=== PATIENT | female | born 1975 ===

== ENCOUNTER 2017-02-24 13:31 | Outpatient (CLI) | payer OTHER ==
--- NOTE | 2017-02-24 16:16 | Ultrasound Report ---
TRANSABDOMINAL AND TRANSVAGINAL PELVIC ULTRASOUND: 02/24/17 13:31:00 CLINICAL: Left lower quadrant pain. FINDINGS: Transabdominal and transvaginal pelvic ultrasound demonstrated a normal small uterus measuring 8.7 x 3.9 x 5.4 centimeters. Normal uterine contour and echogenicity. The endometrium is normal and measures 3 mm AP thickness. Several nabothian cysts of the cervix. Normal right ovary with small follicles. The right ovary measures 3.4 x 1.9 x 2.7cm. normal left ovary with several follicles. A dominant follicle in the left ovary measures 1.4cm. The left ovary measures 4.4 x 1.8 x 2.4cm. No adnexal mass. No free fluid. Normal urinary bladder. IMPRESSION: Normal pelvis. No explanation for pelvic pain.
== END 2017-02-24 13:32 | disposition home or self-care (01) ==
LOC: SPVWC 13:31
PROVIDERS: ATTEND Nurse Practitioner Family
DX: N88.8 Other specified noninflammatory disorders of cervix uteri (principal); R10.32 Left lower quadrant pain
CPT/HCPCS: 76830; 76856